=== PATIENT | female | born 1990 | race Caucasian/White ===

== ENCOUNTER 2021-01-14 23:30 | Emergency (ER) | payer SELFPAY ==
[~2021-01-14] VITALS: Ht 157.5 cm; Wt 73.5 kg
[2021-01-14 23:35] VITALS: BP_SYST 118
--- NOTE | 2021-01-15 | NUR ---
CFO AT BEDSIDE TO COLLECT BLOOD SPECIMEN.
--- NOTE | 2021-01-15 00:02 | NUR ---
Placed in room 04 . Placed on ekg monitor tech, blood pressure machine and pulse oximeter. To gown for exam. Side rails up. Report given to CARLOS Betancur
--- NOTE | 2021-01-15 00:05 | NUR ---
PATIENT AAOX4 BIB BLS FOR CHEST PAIN THAT STARTED 30 MIN [employer]. K[place]AK[facility] SPEAKING ONLY. PATIENT STATED THAT SHE WAS IN THE SHOWER WHEN THE PAIN STARTED. CURRENTLY STATING 10/10 ON THE PAIN SCALE. HAS HISTORY OF GALL STONES. - N/V/D, SOB. PAIN IS NON RADIATING.
--- NOTE | 2021-01-15 00:20 | NUR ---
# 20 gauge angiocath placed to LEFT HAND . Use of asceptic technique. Opsite placed over site. Blood return noted. Flushed with 10 cc of normal saline. No evidence of infiltration noted. Patient tolerated well.
--- NOTE | 2021-01-15 00:30 | NUR ---
DR. HUTCHINSON AT BEDSIDE FOR EVALUATION.
[2021-01-15] MEDS ORDERED: MORPHINE 4 MG INJ. 4 MG/ML VIAL IVP ONE (00:45)
[2021-01-15] MEDS ORDERED: NACL 0.9% 1,000 ML IV ONE (00:45)
[2021-01-15] MEDS ORDERED: METOCLOPRAMIDE HCL 10 MG/2 ML VIAL IVP ONE (00:45)
[2021-01-15 00:50] LABS: BASOPHILS % (AUTO) 0.4 % (0.0-2.0); EOSINOPHILS # (AUTO) 0.2 K/uL (0.0-0.4); EOSINOPHILS % (AUTO) 2.2 % (0.0-4.0); HEMATOCRIT 37.3 % (36-48); HEMOGLOBIN 12.6 g/dL (12.0-16.0); LYMPHOCYTES # (AUTO) 1.8 K/uL (1.0-5.5); LYMPHOCYTES % (AUTO) 24.2 % (20.5-51.5); MEAN CORPUSCULAR HEMOGLOBIN 29 pg (27-31); MEAN CORPUSCULAR HGB CONC 34 % (32-36); MEAN CORPUSCULAR VOLUME 86 fL (79.0-98.0); MONOCYTES # (AUTO) 0.4 K/uL (0.0-1.0); MONOCYTES % (AUTO) 5.6 % (1.7-9.3); NEUTROPHILS # (AUTO) 4.9 K/uL (1.8-7.7); NEUTROPHILS % (AUTO) 67.6 % (40.0-70.0); PLATELET COUNT (AUTO) 183 K/uL (130-430); RED BLOOD CELL COUNT(AUTO) 4.33 MIL/uL (4.2-6.2); RED CELL DISTRIBUTION WIDTH 13.5 % (9.0-15.0); WHITE BLOOD COUNT (AUTO) 7.3 K/uL (4.8-10.8)
--- NOTE | 2021-01-15 00:50 | NUR ---
medication administered as ordered.
[2021-01-15 00:52] LABS: CALCIUM 8.5 mg/dL (8.4-11.0); CREATININE 0.82 mg/dL (0.55-1.30)
[2021-01-15 00:58] LABS: ALBUMIN 3.4 g/dL (3.4-4.8); POTASSIUM 3.1 mmol/L (3.5-5.1); TOTAL BILIRUBIN 0.6 mg/dL (0.0-1.0)
--- NOTE | 2021-01-15 01:09 | NUR ---
portable xray at bedside.
[2021-01-15 02:16] LABS: BILIRUBIN,URINE NEGATIVE (NEGATIVE); BLOOD, URINE NEGATIVE (NEGATIVE); CLARITY/URINE CLEAR (CLEAR); COLOR,URINE YELLOW (YELLOW); GLUCOSE,URINE NEGATIVE (NEGATIVE); KETONES,URINE NEGATIVE (NEGATIVE); LEUKOCYTE ESTERASE ,URINE TRACE (NEGATIVE); NITRITE, URINE NEGATIVE (NEGATIVE); PROTEIN URINE NEGATIVE (NEGATIVE); UROBILINOGEN,URINE 0.2 (0.2-1.0)
[2021-01-15 02:19] LABS: BACTERIA,URINE FEW /HPF (None Seen); RBC,URINE 0-3 /HPF (0-3)
--- NOTE | 2021-01-15 02:21 | NUR ---
Dr. Álvarez at bedside for ultrasound
[2021-01-15] MEDS ORDERED: HYDR-3917 PO (02:54)
[2021-01-15] MEDS ORDERED: FAMO20TA8 PO (02:54)
[2021-01-15] MEDS ORDERED: PHE25 PO (02:54)
[2021-01-15 03:30] VITALS: BP_SYST 118
--- NOTE | 2021-01-15 03:30 | NUR ---
Patient given written and verbal discharge instructions and verbalizes understanding. DR. EVANGELINA REZA MD discussed with patient the results and treatment provided. Patient in stable condition. ID arm band removed. IV catheter removed intact and dressing applied, no active bleeding. Rx of PEPCID, NORCO, PHENERGAN given. Patient educated on pain management and to follow up with PMD. Pain Scale 0/10. Opportunity for questions provided and answered. Medication side effect fact sheet provided.
== END 2021-01-15 03:30 | disposition home or self-care (01) ==
LOC: SED 23:30
DX: K80.50 Calculus of bile duct without cholangitis or cholecystitis without obstruction (principal); R07.2 Precordial pain; Z79.899 Other long term (current) drug therapy
CPT/HCPCS: 36415; 71045; 80053; 81000; 83690; 84484; 84703; 85025; 93005; 96361; 96374; 96375; 99285; J2270; J2765; J7030